=== PATIENT | female | born 1980 | race Caucasian/White ===

== ENCOUNTER 2018-10-14 09:59 | Emergency (ER) | payer SELFPAY ==
[~2018-10-14] VITALS: Ht 149.9 cm; Wt 45.4 kg
[2018-10-27] MEDS ORDERED: Voltaren100 GM TOP (18:04)
== END 2018-10-14 10:51 | disposition home or self-care (01) ==
LOC: ER 09:59
DX: M25.461 Effusion, right knee (principal); Z87.891 Personal history of nicotine dependence
CPT/HCPCS: 20610; 99283-25